=== PATIENT | female | born 1980 | race Caucasian/White ===

== ENCOUNTER 2024-10-27 13:40 | Emergency (ER) | payer OTHER ==
[~2024-10-27] VITALS: Ht 170.2 cm; Wt 66.2 kg
[2024-10-27 14:58] LABS: PLATELET COUNT (AUTO) 367 K/uL (150-450); RED BLOOD CELL COUNT(AUTO) 4.46 MIL/uL (4.0-5.2); RED CELL DISTRIBUTION WIDTH 16.9 % (11.5-15.0); WHITE BLOOD COUNT (AUTO) 14.8 K/uL (4.3-11.0)
[2024-10-27] MEDS: IV NS 0.9% 1,000 ML BAG IV ONE (15:07)
[2024-10-27 15:08] LABS: CALCIUM, SERUM 8.2 mg/dL (8.5-10.1); CREATININE 0.5 mg/dL (0.6-1.3); SODIUM SERUM 135.0 mmol/L (136-145); UREA NITROGEN, BLOOD 14.0 mg/dL (7-18)
[2024-10-27 15:15] LABS: ALCOHOL, BLOOD 129.0 mg/dL (0-10); ASPARTATE AMINOTRANSFERASE 30.0 U/L (15-37); TOTAL PROTEIN, SERUM 7.6 g/dL (6.4-8.2)
[2024-10-27] MEDS ORDERED: LORAZEPAM INJ 2 MG/ML VIAL ONE (16:00)
[2024-10-27] MEDS: LORAZEPAM INJ 2 MG/ML VIAL IV ONE (16:02)
[2024-10-27 17:13] LABS: APPEARANCE,URINE CLEAR (CLEAR); BLOOD, URINE Small Ery/uL (NEGATIVE); LEUKOCYTE ESTERASE ,URINE Negative (NEGATIVE); UGLUCOSE Negative (NEGATIVE)
[2024-10-27 17:15] LABS: NITRITE, URINE NEGATIVE (NEGATIVE); PREGNANCY TEST URINE QUAL NEGATIVE (NEGATIVE)
[2024-10-27 17:16] LABS: ADD URINE CULTURE NO
[2024-10-27 17:24] LABS: AMPHETAMINE, URINE NEGATIVE (NEGATIVE); BARBITURATE, URINE NEGATIVE (NEGATIVE); BENZODIAZEPINE, URINE POSITIVE (NEGATIVE); CANNABINOID, URINE NEGATIVE (NEGATIVE); COCCAINE, URINE NEGATIVE (NEGATIVE); OPIATE, URINE NEGATIVE (NEGATIVE)
[2024-10-28 01:09] VITALS: BP 152/97; TEMP 98.1; O2SAT 99
== END 2024-10-28 01:12 | disposition home or self-care (01) ==
LOC: ER 13:45
DX: T14.91XA Suicide attempt, initial encounter (principal); F10.10 Alcohol abuse, uncomplicated; R00.0 Tachycardia, unspecified; F32.A Depression, unspecified; Z20.822 Contact with and (suspected) exposure to COVID-19; Y92.89 Other specified places as the place of occurrence of the external cause
CPT/HCPCS: 99285; 96374; 96361; 93005; 85025; 80048; 80076; 84703; 81001; 36415; 87426; 80143; 80320; 80307; J2060; J7030; G0480